=== PATIENT | male | born 1990 | race African-American/Black ===

== ENCOUNTER 2016-12-11 13:55 | Emergency (ER) | payer OTHER ==
[2016-12-11] MEDS ORDERED: IBUPROFEN 800 MG TABLET PO ONE (14:00)
--- NOTE | 2016-12-11 14:02 | ER Document Report ---
ED Medical Screen (RME) - General Stated Complaint: FEVER Notes: Patient is a 25-year-old male presents to the emergency Department complaining of body aches, headache, fever, chills, cough for the past 2 days. Patient admits to sick contacts at home. Denies taking any Tylenol or Motrin. Denies receiving a flu vaccine this year. I have greeted and performed a rapid initial assessment of this patient. A comprehensive ED assessment and evaluation of the patient, analysis of test results and completion of the medical decision making process will be conducted by additional ED providers. TRAVEL OUTSIDE OF THE [place] IN LAST 30 DAYS: No - Related Data Allergies/Adverse Reactions: Penicillins Allergy (Verified 12/11/16 14:00) Past Medical History Musculoskeltal Medical History: Reports Hx Musculoskeletal Trauma - Immunizations Hx Diphtheria, Pertussis, Tetanus Vaccination: Yes Physical Exam - Vital signs Vitals: Temp Pulse Resp BP Pulse Ox 101.8 F H 113 H 20 132/90 H 100 12/11/16 13:58 12/11/16 13:58 12/11/16 13:58 12/11/16 13:58 12/11/16 13:58 Course - Vital Signs Vital signs: Temp Pulse Resp BP Pulse Ox 101.8 F H 113 H 20 132/90 H 100 12/11/16 13:58 12/11/16 13:58 12/11/16 13:58 12/11/16 13:58 12/11/16 13:58
--- NOTE | 2016-12-11 16:01 | ER Document Report ---
ED General - General Chief Complaint: Fever Stated Complaint: FEVER Mode of Arrival: Ambulatory Information source: Patient Notes: Patient presents to the emergency department with complaints of severe headache fever chills and cough for the past 3 days. Patient also reports rectal pain. Patient reports he is HIV positive. He reports he recently had rectal intercourse at the end of October. He did use protection and lubricant but believes the protection failed. He reports he has rectal irritation since that time. He denies bleeding. He reports he feels a bump. Patient reports his CD4 counts were undetectable in August. In September he quit taking his medications because he felt depressed. He denies fever vomiting diarrhea. He reports his last bowel movement today was formed. TRAVEL OUTSIDE OF THE [place] IN LAST 30 DAYS: No - HPI Onset: Other - 3 days Quality of pain: Achy Pain Level: 3 Associated symptoms: Nonproductive cough, Fever, Other - Rectal pain Exacerbated by: Denies Relieved by: Denies Similar symptoms previously: No Recently seen / treated by doctor: No - Related Data Allergies/Adverse Reactions: Penicillins Allergy (Verified 12/11/16 14:00) Past Medical History - General Information source: Patient - Social History Smoking Status: Current Every Day Smoker Cigarette use (# per day): Yes Chew tobacco use (# tins/day): No Frequency of alcohol use: None Drug Abuse: Marijuana Family History: Reviewed & Not Pertinent Patient has suicidal ideation: No Patient has homicidal ideation: No Renal/ Medical History: Denies: Hx Peritoneal Dialysis Musculoskeltal Medical History: Reports Hx Musculoskeletal Trauma Psychiatric Medical History: Reports: Hx Depression - anxiety Infectious Medical History: Reports: Hx HIV Surgical Hx: Negative Past Surgical History: Reports: Hx Adenoidectomy, Hx Tonsillectomy - Immunizations Hx Diphtheria, Pertussis, Tetanus Vaccination: Yes Review of Systems - Review of Systems Notes: Review HPI for review of systems., All other systems negative Physical Exam - Vital signs Vitals: Temp Pulse Resp BP Pulse Ox 101.8 F H 113 H 20 132/90 H 100 12/11/16 13:58 12/11/16 13:58 12/11/16 13:58 12/11/16 13:58 12/11/16 13:58 - Notes Notes: PHYSICAL EXAMINATION: GENERAL: Well-appearing and in no acute distress nontoxic looking HEAD: Atraumatic, normocephalic. EYES: Pupils equal round extraocular movements intact, sclera anicteric, conjunctiva are normal. ENT: TM Wnl, nares patent, oropharynx clear without exudates. Moist mucous membranes. No peritonsillar abscess good clear voice no trismus NECK: Normal range of motion, supple without lymphadenopathy LUNGS: CTAB and equal. No wheezes rales or rhonchi. HEART: Regular rate and rhythm without murmurs ABDOMEN: Soft, no tenderness. No guarding, no rebound EXTREMITIES: Normal range of motion, no pitting edema. No cyanosis. NEUROLOGICAL: Cranial nerves grossly intact. Normal sensory/motor PSYCH: Normal mood, normal affect. SKIN: Warm, Dry, normal turgor, no rashes or lesions noted - Rectal Tenderness: No Hemorrhoids: None Notes: small pink area to ~1500 area that appears to resemble a skin tear, no sores, lesions, warts, hemorrhoids noted. Course - Re-evaluation Re-evalutation: 12/11/16 16:05 I have consulted the attending provider Dr Suazo,per [facility] guidelines. Chest xray ordered, no further tests advised. pt looks good, nontoxic looking. Pt advised to apply barrier cream to rectal area, avoid sexual intercourse until follow up with his provider for recheck. Pt plans on following up with the [facility] Tuesday. - Vital Signs Vital signs: Temp Pulse Resp BP Pulse Ox 98.6 F 66 16 122/71 100 12/11/16 17:01 12/11/16 17:01 12/11/16 17:01 12/11/16 17:04 12/11/16 17:01 - Diagnostic Test Radiology reviewed: Image reviewed, Reports reviewed - neg Discharge - Discharge Clinical Impression: Cough, Fever, Rectal irritation Condition: Stable Disposition: HOME, SELF-CARE Instructions: Acetaminophen, Fever ([facility]) Additional Instructions: *You have been evaluated for cold symptoms today, cough, fever, rectal irritation, elevated blood pressure *Your strep test was negative. A throat culture is pending. If you need antibiotics you will be contacted. *Quit smoking *Increase fluid intake as discussed *Monitor your temperature, take Tylenol as indicated *Apply barrier cream to rectal area as discussed. Avoid rectal intercourse until follow up with your provider *Follow up with the [facility] Tuesday for recheck *Follow up with your HIV provider Tuesday for your medications *Return to ED for worsening condition, changes, needs, worsening cough, fever Monitor your blood pressure. Your blood pressure was elevated today. This may be because you were anxious, in pain or because you need medication. It is important to follow up with your primary care provider for full evaluation. Forms: Smoking Cessation Education, Elevated Blood Pressure
[2016-12-11 17:05] VITALS: BP 122/71
== END 2016-12-11 17:06 | disposition home or self-care (01) ==
LOC: ER 13:55
DX: R05 Cough (principal); R50.9 Fever, unspecified; K62.89 Other specified diseases of anus and rectum; R51 Headache; F17.210 Nicotine dependence, cigarettes, uncomplicated
CPT/HCPCS: 71020; 87070; 87077; 87804; 87880; 99283

== ENCOUNTER 2016-12-17 11:18 | Emergency (ER) | payer OTHER ==
--- NOTE | 2016-12-17 11:41 | ER Document Report ---
ED Medical Screen (RME) - General Stated Complaint: BLOODY STOOL,ABDOMINAL PAIN Notes: Patient complains of abdominal pain with bloody stools for 2 days. Also has chest congestion. States was seen last Tuesday the same. Patient states last fever was Tuesday, but does have productive cough. Unable to obtain full patient history. Patient states he feels uncomfortable discussing here in triage. I have greeted and performed a rapid initial assessment of this patient. A comprehensive ED assessment and evaluation of the patient, analysis of test results and completion of the medical decision making process will be conducted by additional ED providers. TRAVEL OUTSIDE OF THE [place] IN LAST 30 DAYS: No - Related Data Allergies/Adverse Reactions: Penicillins Allergy (Verified 12/17/16 11:42) Past Medical History Renal/ Medical History: Denies: Hx Peritoneal Dialysis Musculoskeltal Medical History: Reports Hx Musculoskeletal Trauma Psychiatric Medical History: Reports: Hx Depression - anxiety Infectious Medical History: Reports: Hx HIV Past Surgical History: Reports: Hx Adenoidectomy, Hx Tonsillectomy - Immunizations Hx Diphtheria, Pertussis, Tetanus Vaccination: Yes Physical Exam - Vital signs Vitals: Temp Pulse Resp BP Pulse Ox 99.2 F 85 16 124/84 100 12/17/16 11:36 12/17/16 11:36 12/17/16 11:36 12/17/16 11:36 12/17/16 11:36 Course - Vital Signs Vital signs: Temp Pulse Resp BP Pulse Ox 99.2 F 85 16 124/84 100 12/17/16 11:36 12/17/16 11:36 12/17/16 11:36 12/17/16 11:36 12/17/16 11:36
[2016-12-17] MEDS ORDERED: ALBUTEROL SULFATE 0.083% NEB 2.5 MG/3 ML AMPUL NEB ONE (11:42)
[2016-12-17 13:05] LABS: HEMATOCRIT 33.6 % (37.9-51.0); HEMOGLOBIN 11.7 g/dL (13.5-17.0); HGB HCT DIFFERENCE 1.5; MEAN CORPUSCULAR HEMOGLOBIN 30.8 pg (27.0-33.4); MEAN CORPUSCULAR HGB CONC 34.7 g/dL (32.0-36.0); MEAN CORPUSCULAR VOLUME 89 fl (80-97); RED BLOOD COUNT 3.79 10^6/uL (4.35-5.55); RED CELL DISTRIBUTION WIDTH 17.2 % (11.5-14.0); WHITE BLOOD COUNT 4.5 10^3/uL (4.0-10.5)
--- NOTE | 2016-12-17 13:26 | ER Document Report ---
ED General - General Chief Complaint: Abdominal Pain Stated Complaint: BLOODY STOOL,ABDOMINAL PAIN Mode of Arrival: Ambulatory Information source: Patient Notes: 25-year-old male history of HIV who is been off his medications for a few months with a previous CD4 count of 40 presents by private vehicle with concerns of cough fever and bloody diarrhea. I was notified by the patient's infectious disease doctors nurse the patient was here a few days ago diagnosed as a viral syndrome and was discharged home symptoms have worsened since TRAVEL OUTSIDE OF THE [place] IN LAST 30 DAYS: No - HPI Onset: Last week Onset/Duration: Persistent Quality of pain: Achy Severity: Mild Pain Level: 1 - Related Data Allergies/Adverse Reactions: Penicillins Allergy (Verified 12/17/16 11:42) Past Medical History - Social History Smoking Status: Never Smoker Chew tobacco use (# tins/day): No Frequency of alcohol use: None Drug Abuse: None Family History: Reviewed & Not Pertinent Renal/ Medical History: Denies: Hx Peritoneal Dialysis Musculoskeltal Medical History: Reports Hx Musculoskeletal Trauma Psychiatric Medical History: Reports: Hx Depression - anxiety Infectious Medical History: Reports: Hx HIV Past Surgical History: Reports: Hx Adenoidectomy, Hx Tonsillectomy - Immunizations Hx Diphtheria, Pertussis, Tetanus Vaccination: Yes Physical Exam - Vital signs Vitals: Temp Pulse Resp BP Pulse Ox 99.2 F 85 16 124/84 100 12/17/16 11:36 12/17/16 11:36 12/17/16 11:36 12/17/16 11:36 12/17/16 11:36 Course - Re-evaluation Re-evalutation: 12/17/16 13:55 [facility] p[facility] will transfer 12/17/16 14:14 12/17/16 14:24 12/17/16 14:[address] Colon who will accept the patient - Vital Signs Vital signs: Temp Pulse Resp BP Pulse Ox 99.2 F 85 17 124/84 100 12/17/16 11:36 12/17/16 11:36 12/17/16 12:46 12/17/16 11:36 12/17/16 12:46 - Laboratory Result Diagrams: 12/17/16 12:40 12/17/16 12:40 Laboratory results interpreted by me: 12/17/16 12/17/16 12:40 12:40 RBC 3.79 L Hgb 11.7 L Hct 33.6 L RDW 17.2 H Plt Count 113 L Total Protein 9.0 H Lipase 22.2 L - Diagnostic Test Radiology reviewed: Image reviewed, Reports reviewed Discharge - Discharge Clinical Impression: Cough, Human immunodeficiency virus (HIV) infection Fever Qualifiers: Fever type: unspecified Qualified Code(s): R50.9 - Fever, unspecified Abdominal pain Qualifiers: Abdominal location: generalized Qualified Code(s): R10.84 - Generalized abdominal pain Condition: Stable [facility]position[facility]
[2016-12-17 13:29] LABS: ALANINE AMINOTRANSFERASE 29 U/L (21-72); ALBUMIN 4.6 g/dL (3.5-5.0); ALKALINE PHOSPHATASE 76 U/L (38-126); ANION GAP 15 (5-19); ANISOCYTOSIS 2+; ASPARTATE AMINO TRANSFERASE 27 U/L (17-59); BASOPHILS % (MANUAL) 0 % (0-2); BILIRUBIN,DIRECT 0.4 mg/dL (0.0-0.4); BILIRUBIN,TOTAL 1.2 mg/dL (0.2-1.3); BLOOD UREA NITROGEN 12 mg/dL (7-20); CALCIUM 9.2 mg/dL (8.4-10.2); CARBON DIOXIDE 24 mmol/L (22-30); CHLORIDE 106 mmol/L (98-107); EOSINOPHILS % (MANUAL) 0 % (0-6); GLUCOSE 98 mg/dL (75-110); HYPOCHROMASIA 1+; LIPASE 22.2 U/L (23-300); LYMPHOCYTES % (MANUAL) 17 % (13-45); OVALOCYTES SLIGHT; POIKILOCYTOSIS SLIGHT; POLYCHROMASIA SLIGHT; POTASSIUM 3.9 mmol/L (3.6-5.0); ROULEAUX SLIGHT; SODIUM 144.7 mmol/L (137-145); TOTAL CELLS COUNTED 100; TOXIC GRANULATION SLIGHT
[2016-12-17] MEDS ORDERED: NORMAL SALINE 1000 ML 1,000 ML IV ONE (14:29)
[2016-12-17 16:29] VITALS: BP 108/75
== END 2016-12-17 16:30 | disposition short-term general hospital (02) ==
LOC: ER 11:18
DX: R05 Cough (principal); B20 Human immunodeficiency virus [HIV] disease; R50.9 Fever, unspecified; R10.84 Generalized abdominal pain; R19.5 Other fecal abnormalities; R19.7 Diarrhea, unspecified
CPT/HCPCS: 94640; 99285; 51701; 36415; 83690; 85025; 80053; 71020; J7030

== ENCOUNTER 2018-12-15 11:40 | Emergency (ER) | payer OTHER ==
[2018-12-15 11:46] VITALS: BP 149/74
--- NOTE | 2018-12-15 12:24 | ER Document Report ---
ED ENT - General Chief Complaint: Facial Swelling Stated Complaint: FACIAL SWELLING, PAIN, SINUS PRESSURE Time Seen by Provider: 12/15/18 12:14 Mode of Arrival: Ambulatory Information source: Patient, [facility] Records Notes: 27-year-old male patient reports waking up with right face swelling today and headache. He also reports fever. He is afebrile at this time. He thinks it is related to a bad tooth. TRAVEL OUTSIDE OF THE [place] IN LAST 30 DAYS: No - Related Data Allergies/Adverse Reactions: Penicillins Allergy (Verified 12/15/18 11:43) Past Medical History - General Information source: Patient, [facility] Records - Social History Smoking Status: Current Some Day Smoker Cigarette use (# per day): Yes Chew tobacco use (# tins/day): No Smoking Education Provided: No Frequency of alcohol use: None Drug Abuse: None Occupation: Unemployed Lives with: Parents Family History: Reviewed & Not Pertinent Patient has suicidal ideation: No Patient has homicidal ideation: No Musculoskeletal Medical History: Reports Hx Musculoskeletal Trauma Psychiatric Medical History: Reports: Hx Anxiety, Hx Depression Infectious Medical History: Reports: Hx HIV Past Surgical History: Reports: Hx Adenoidectomy, Hx Tonsillectomy - Immunizations Hx Diphtheria, Pertussis, Tetanus Vaccination: Yes Review of Systems - Review of Systems Constitutional: No symptoms reported EENT: Dental problem Cardiovascular: No symptoms reported Respiratory: No symptoms reported Gastrointestinal: No symptoms reported Genitourinary: No symptoms reported Musculoskeletal: No symptoms reported Skin: No symptoms reported Hematologic/Lymphatic: No symptoms reported Neurological/Psychological: No symptoms reported Physical Exam - Vital signs Vitals: Temp Pulse Resp BP Pulse Ox 98.3 F 68 16 149/74 H 100 12/15/18 11:45 12/15/18 11:45 12/15/18 11:45 12/15/18 11:45 12/15/18 11:45 - General General appearance: Appears well, Alert In distress: None - HEENT Head: Normocephalic, Atraumatic Eyes: Normal Pupils: PERRL Mouth/Lips: Other - The right upper second premolar is decayed and broken out. It is quite tender to percuss. There is no abscess noted in the gum region around the tooth. Pharynx: Normal Neck: Normal Notes: There is some swelling to the face in the infraorbital area that is a little tender. - Respiratory Respiratory status: No respiratory distress - Cardiovascular Rhythm: Regular - Abdominal Inspection: Normal - Back Back: Normal - Extremities General upper extremity: Normal inspection General lower extremity: Normal inspection - Neurological Neuro grossly intact: Yes - Psychological Associated symptoms: Normal affect, Normal mood - Skin Skin Temperature: Warm Skin Moisture: Dry Skin Color: Normal Course - Vital Signs Vital signs: Temp Pulse Resp BP Pulse Ox 98.3 F 68 16 149/74 H 100 12/15/18 11:45 12/15/18 11:45 12/15/18 11:45 12/15/18 11:45 12/15/18 11:45 Discharge - Discharge Clinical Impression: Dental infection Condition: Stable Disposition: HOME, SELF-CARE Additional Instructions: Dental Infection or Abscess You have an infection, perhaps an abscess (pus formation) of the gum around one of your teeth, which is probably decayed. If there is an abscess, it may drain on its own or it may need to be opened or lanced. Severe swelling or drainage around a tooth usually means a deep dental abscess which usually requires evaluation and treatment by a dentist or oral surgeon. Antibiotics may be prescribed while awaiting dental treatment. If you develop high fever with chills, worsening pain, or increasing swelling in the area, see a dentist or oral surgeon immediately or return to the Emergency Department immediately. Take medications as prescribed. Take ibuprofen every 8 hours for pain and inflammation. Take Tylenol every 4 hours for pain. Use warm soaks to the swollen face area. Follow-up with a dentist next week. RETURN TO THE EMERGENCY ROOM IF ANY NEW OR WORSENING SYMPTOMS. Prescriptions: Clindamycin HCl 300 mg PO QID #28 capsule
[2018-12-15] MEDS ORDERED: HYDROCODONE/ACETAMINOPHEN 5-325 MG TABLET PO ONE (12:26)
[2018-12-15] MEDS ORDERED: IBUPROFEN 800 MG TABLET PO ONE (12:27)
== END 2018-12-15 12:32 | disposition home or self-care (01) ==
LOC: ER 11:40
DX: K04.7 Periapical abscess without sinus (principal); K02.9 Dental caries, unspecified; R51 Headache; R50.9 Fever, unspecified; F17.210 Nicotine dependence, cigarettes, uncomplicated; Z88.0 Allergy status to penicillin; Z21 Asymptomatic human immunodeficiency virus [HIV] infection status
CPT/HCPCS: 99283